=== PATIENT | female | born 1950 | race Hispanic/Latino ===

== ENCOUNTER 2018-03-01 10:07 | Emergency (ER) | payer MEDICARE ==
[~2018-03-01] VITALS: Ht 165.1 cm; Wt 59.0 kg
[2018-03-01] MEDS ORDERED: FAMOTIDINE 20 MG/2 ML VIAL IV STA (10:27)
[2018-03-01] MEDS ORDERED: METOCLOPRAMIDE HCL 10 MG/2ML VIAL IV NR (10:30)
[2018-03-01] MEDS ORDERED: SODIUM CHLORIDE 0.9% 1000ML 1,000 ML IV ONE ×2 (10:30→13:00)
[2018-03-01] MEDS ORDERED: LACTOBACILLUS ACIDOPHILUS CAPSULE PO ONE (10:30)
--- NOTE | 2018-03-01 10:52 | Diagnostic Imaging Report ---
PROCEDURE:X-RAY ABDOMEN, ACUTE SERIES COMPARISON:None. INDICATIONS:NAUSEA/VOMITING/DIARRHEA FOR 3 DAYS. BILATERAL UMBILICAL PAIN FINDINGS: There are no dilated loops of bowel or air-fluid levels to suggest obstruction. There are no masses or abnormal calcifications. There is no evidence of free air. No acute osseous abnormalities are present. Upright chest x-ray reveals no abnormality. Heart and lungs are normal. No consolidation or effusion. CONCLUSION: No acute abdominal or thoracic abnormality. Yonatan Vega D.O. Dictated by: Yonatan Vega D.O. on 03/01/2018 at 10:54 Electronically approved by: Yonatan Vega D.O. on 03/01/2018 at 10:54
[2018-03-01 11:02] LABS: BASOPHILS % 0.6 % (0.0-1.0); EOSINOPHILS # (AUTO) 0.2 (0.0-0.4); EOSINOPHILS % 4.2 % (0.0-6.0); HEMATOCRIT 41.5 % (34.2-44.1); HEMOGLOBIN 13.7 g/dL (12.0-16.0); LYMPHOCYTES # (AUTO) 1.2 (1.0-3.2); MEAN CORPUSCULAR HEMOGLOBIN 28.3 pg (28-32); MEAN CORPUSCULAR VOLUME 85.7 fL (81-99); MONOCYTES # (AUTO) 0.4 (0.2-0.8); MONOCYTES % 11.4 % (4.4-11.3); NEUTROPHILS # (AUTO) 1.8 (2.1-6.9); NEUTROPHILS % 49.5 % (38.7-80.0); PLATELET COUNT 222 x10e3/uL (140-360); RED BLOOD COUNT 4.84 x10e6/uL (3.6-5.1)
[2018-03-01 11:19] LABS: ALANINE AMINOTRANSFERASE 101 IU/L (0-55); ALBUMIN 3.3 g/dL (3.5-5.0); ALBUMIN/GLOBULIN RATIO 0.8 (0.8-2.0); ALKALINE PHOSPHATASE 49 IU/L (40-150); ANION GAP 10.8 mmol/L (8-16); BLOOD UREA NITROGEN 8 mg/dL (7-26); BUN/CREATININE RATIO 11 (6-25); CALCIUM 8.7 mg/dL (8.4-10.2); CARBON DIOXIDE 23 mmol/L (22-29); CHLORIDE 109 mmol/L (98-107); CREATININE, SERUM 0.75 mg/dL (0.57-1.11); EST GLOMERULAR FILTRATION RATE > 60 ML/MIN (60-); GLUCOSE 97 mg/dL (74-118); LIPASE 67 U/L (8-78); POTASSIUM 3.8 mmol/L (3.5-5.1); SODIUM 139 mmol/L (136-145)
[2018-03-01] MEDS ORDERED: DIPHENOXYLATE/ATROPINE TAB PO NR (12:15)
[2018-03-01 14:14] VITALS: BP 128/63
== END 2018-03-01 14:05 | disposition home or self-care (01) ==
LOC: ER 10:07
DX: A08.4 Viral intestinal infection, unspecified (principal); E86.0 Dehydration
CPT/HCPCS: 36415; 74022; 80053; 83690; 85025; 99284; J2765; J7030

== ENCOUNTER 2018-03-28 13:01 | Emergency (ER) | payer MEDICARE ==
[~2018-03-28] VITALS: Ht 165.1 cm; Wt 59.0 kg
--- OUTSIDE RECORDS SUMMARY | 2018-03-28 13:03 | XMS REPORT | Continuity of Care Document ---
Author Author [facility] Organization [facility] Address [address] [place] [address] Phone Unavailable Care Team Providers Care Bottle Blower Name Role Phone NONSTAFF PCP Unavailable Insurance Providers Guarantor Stephanie Lucas Address [address] [place] [address] Email [email or web address] [email or web address] A[employer] Policy Number [id number] Subscriber's Name LancePatrickStephanie Relationship 18 Self / Same As Patient Advance Directives Directive Response Recorded Date/Time Does the patient have an advance directive? No 03/01/18 11:54am If yes, is advance directive on file with [facility]? No 03/01/18 11:54am If not on file with [facility] will patient provide a copy? No 03/01/18 11:54am Do you have a Directive to Physician? 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 No 03/01/18 11:54am Do you have an out of hospital Do Not Resuscitate Order? No 03/01/18 11:54am Do you have any special needs we should be aware of? No 03/01/18 11:54am Do you have a support person here with you today? Yes 03/01/18 11:54am Did patient receive Notice of Privacy Practices? Yes 03/01/18 11:54am Did patient receive patient rights and responsibilities? Yes 03/01/18 11:54am Problems No problem information available. Medications No known medications. Social History No social history information available. Hospital Discharge Instructions No hospital discharge instruction information available. Plan of Care Discharge Date 03/01/18 2:05pm Disposition HOME, SELF-CARE Condition at Discharge Stable Instructions/Education Provided Diarrhea - Adult Vomiting - Adult Forms Provided Work/School Excuse Prescriptions See Medication Section Referrals Shannan Asif Functional Status No functional status information available. Allergies, Adverse Reactions, Alerts Allergen Type Severity Reaction Status Last Updated Penicillin Allergy Unknown Active 03/01/18 Immunizations No immunization information available. Vital Signs Acute Vital Signs Vital Response Date/Time Pulse Pulse Rate (adult) 63 bpm (60 - 90) 03/01/2018 2:14pm Respiratory Rate 16 bpm (12 - 24) 03/01/2018 2:14pm Blood Pressure 128/63 mm Hg 03/01/2018 2:14pm Height 5 ft 5 in 03/01/2018 10:19am Weight 130 lb 03/01/2018 10:19am Body Mass Index 21.6 kg/m^2 03/01/2018 10:19am Results Laboratory Results Test Name Result Units Flags Reference Collection Date/Time Result Date/ Time Comments White Blood Count 3.59 x10e3/uL L 4.8-10.8 03/01/2018 10:50am 2017 11:03am Red Blood Count 4.84 x10e6/uL 3.6-5.1 03/01/2018 10:50am 03/01/2018 11: 03am Hemoglobin 13.7 g/dL 12.0-16.0 03/01/2018 10:50am 03/01/2018 11:03am Hematocrit 41.5 % 34.2-44.1 03/01/2018 10:50am 03/01/2018 11:03am Mean Corpuscular Volume 85.7 fL 81-99 03/01/2018 10:50am 03/01/2018 11: 03am Mean Corpuscular Hemoglobin 28.3 pg 28-32 03/01/2018 10:50am 2017 11:03am Mean Corpuscular Hemoglobin Concent 33.0 g/dL 31-35 03/01/2018 10:50am 03/01/2018 11:03am Red Cell Distribution Width 13.0 % 11.7-14.4 03/01/2018 10:50am 2017 11:03am Platelet Count 222 x10e3/uL 140-360 03/01/2018 10:50am 03/01/2018 11: 03am Neutrophils (%) (Auto) 49.5 % 38.7-80.0 03/01/2018 10:5003/01/2018 11:03am Lymphocytes (%) (Auto) 34.0 % 18.0-39.1 03/01/2018 10:5003/01/2018 11:03am Monocytes (%) (Auto) 11.4 % H 4.4-11.3 03/01/2018 10:5003/01/2018 11 :03am Eosinophils (%) (Auto) 4.2 % 0.0-6.0 03/01/2018 10:5003/01/2018 11: 03am Basophils (%) (Auto) 0.6 % 0.0-1.0 03/01/2018 10:5003/01/2018 11: 03am IM GRANULOCYTES % 0.3 % 0.0-1.0 03/01/2018 10:5003/01/2018 11:03am Neutrophils # (Auto) 1.8 L 2.1-6.9 03/01/2018 10:5003/01/2018 11: 03am Lymphocytes # (Auto) 1.2 1.0-3.2 03/01/2018 10:5003/01/2018 11: 03am Monocytes # (Auto) 0.4 0.2-0.8 03/01/2018 10:5003/01/2018 11:03am Eosinophils # (Auto) 0.2 0.0-0.4 03/01/2018 10:5003/01/2018 11: 03am Basophils # (Auto) 0.0 0.0-0.1 03/01/2018 10:5003/01/2018 11:03am Absolute Immature Granulocyte (auto 0.01 x10e3/uL 0-0.1 03/01/2018 10: 5003/01/2018 11:03am Sodium Level 139 mmol/L 136-145 03/01/2018 10:5003/01/2018 11:19am Potassium Level 3.8 mmol/L 3.5-5.1 03/01/2018 10:5003/01/2018 11: 19am Chloride Level 109 mmol/L H 98-107 03/01/2018 10:50am 03/01/2018 11: 19am Carbon Dioxide Level 23 mmol/L 22-29 03/01/2018 10:50am 03/01/2018 11: 19am Anion Gap 10.8 mmol/L 8-16 03/01/2018 10:50am 03/01/2018 11:19am Blood Urea Nitrogen 8 mg/dL 7-26 03/01/2018 10:50am 03/01/2018 11:19am Creatinine 0.75 mg/dL 0.57-1.11 03/01/2018 10:50am 03/01/2018 11:19am BUN/Creatinine Ratio 11 6-25 03/01/2018 10:50am 03/01/2018 11:19am Estimat Glomerular Filtration Rate > 60 ML/MIN 60- 03/01/2018 10:50am 03/01/2018 11:19am Ranges were taken from the National Kidney Disease Education Program and the National Kid[employer] literature. Reference ranges: 60 or greater: Normal 16-59 (for 3 consecutive months): Chronic kidney disease 15 or less: Kidney failure Glucose Level 97 mg/dL 74-118 03/01/2018 10:50am 03/01/2018 11:19am Calcium Level 8.7 mg/dL 8.4-10.2 03/01/2018 10:50am 03/01/2018 11:19am Total Bilirubin 0.5 mg/dL 0.2-1.2 03/01/2018 10:50am 03/01/2018 11: 19am Aspartate Amino Transf (AST/SGOT) 100 IU/L H 5-34 03/01/2018 10:50am 07/2018 11:19am Alanine Aminotransferase (ALT/SGPT) 101 IU/L H 0-55 03/01/2018 10:50am 03/01/2018 11:19am Total Protein 7.5 g/dL 6.5-8.1 03/01/2018 10:5003/01/2018 11:19am Albumin 3.3 g/dL L 3.5-5.0 03/01/2018 10:50am 03/01/2018 11:19am Globulin 4.2 g/dL H 2.3-3.5 03/01/2018 10:50am 03/01/2018 11:19am Albumin/Globulin Ratio 0.8 0.8-2.0 03/01/2018 10:50am 03/01/2018 11: 19am Alkaline Phosphatase 49 IU/L 40-150 03/01/2018 10:50am 03/01/2018 11: 19am Lipase 67 U/L 8-78 03/01/2018 10:50am 03/01/2018 11:19am Procedures No procedure information available. Encounters Encounter Location Arrival/Admit Date Discharge/Depart Date Attending Provider Departed Emergency Room [facility] 03/01/18 10:07am 03/01 2:05pm LAI GOODSON MD
--- OUTSIDE RECORDS SUMMARY | 2018-03-28 13:03 | XMS REPORT ---
Author Author [facility] Address Unknown Phone Unavailable Care Team Providers Care Associate Engineer Name Role Phone LAI GOODSON Unavailable Unavailable Problems This patient has no known problems. Allergies, Adverse Reactions, Alerts This patient has no known allergies or adverse reactions. Medications This patient has no known medications. Results Test Description Test Time Test Comments Text Results Atomic Results Result Comments ABDOMEN ACUTE SERIES W/PA CXR [place] [address] Patient Name: MELODY HERNDON MR #: [id number] : 1950 Age/Sex: 67/F Req #: [id number] Adm Physician: Ordered by: LAI GOODSON MD Report #: [id number] Location: ER Room/Bed: Procedure: [id number] DX/ABDOMEN ACUTE SERIES W/PA CXR Exam Date: 03/01/18 Exam Time: 1035 REPORT STATUS: Signed PROCEDURE : X-RAY ABDOMEN, ACUTE SERIES COMPARISON: None. INDICATIONS: NAUSEA/VOMITING/DIARRHEA FOR 3 DAYS. BILATERAL UMBILICAL PAIN FINDINGS : There are no dilated loops of bowel or air-fluid levels to suggest obstruction. There are no masses or abnormal calcifications. There is no evidence of free air. No acute osseous abnormalities are present. Upright chest x-ray reveals no abnormality. Heart and lungs are normal. No consolidation or effusion. CONCLUSION: No acute abdominal or thoracic abnormality. Stefanie Gonzalez D.O. Dictated by: Steafnie Gonzalez D.O. on 03/01/2018 at 10:54 Electronically approved by: Stefanie Gonzalez D.O. on 03/01/2018 at 10:54 Dictated By: STEFANIE GONZALEZ DO 1054 Transcribed By: ALEXY on 03/01/18 1054 COPY TO: LAI GOODSON MD
[2018-03-28] MEDS ORDERED: IPRATROPIUM BROMIDE 0.02% 2.5 ML NEB NEB STA (13:29)
[2018-03-28] MEDS ORDERED: ALBUTEROL SULF 0.083% NEB SOLN 3 ML NEB NEB STA (13:29)
[2018-03-28] MEDS ORDERED: BENZONATATE 100 MG CAP PO PRN (13:30)
[2018-03-28] MEDS ORDERED: IBUPROFEN 600 MG TAB PO STA (13:31)
[2018-03-28 13:54] LABS: BILIRUBIN,URINE NEGATIVE (NEGATIVE); CLARITY,URINE CLEAR (CLEAR); COLOR,URINE YELLOW (YELLOW); KETONES,URINE NEGATIVE (NEGATIVE); LEUKOCYTE ESTERASE ,URINE NEGATIVE (NEGATIVE); NITRITE,URINE NEGATIVE (NEGATIVE); PROTEIN,URINE DIPSTICK NEGATIVE (NEGATIVE); URINE UROBILINOGEN 0.2 mg/dL (0.2 - 1)
[2018-03-28 14:07] LABS: EPITHELIAL CELLS,URINE FEW /LPF; RBC,URINE 0-5 /HPF (0-5)
--- NOTE | 2018-03-28 14:07 | Diagnostic Imaging Report ---
PROCEDURE: Frontal and lateral views of the chest. COMPARISON: 02/20/18 INDICATIONS: HEAD AND THROAT PAIN FINDINGS: Lines/tubes: None. Lungs: The lungs are well inflated and clear. There is no evidence of pneumonia or pulmonary edema. Pleura: There is no pleural effusion or pneumothorax. Heart and mediastinum: The heart and the mediastinum are normal. Bones: No acute bony abnormality. IMPRESSION: 1. No acute cardiopulmonary disease. Dictated by: Stan John M.D. on 03/28/2018 at 14:09 Electronically approved by: Stan John M.D. on 03/28/2018 at 14:09
[2018-03-28 15:17] LABS: BASOPHILS % 0.5 % (0.0-1.0); EOSINOPHILS # (AUTO) 0.2 (0.0-0.4); EOSINOPHILS % 2.3 % (0.0-6.0); HEMATOCRIT 42.4 % (34.2-44.1); HEMOGLOBIN 14.1 g/dL (12.0-16.0); LYMPHOCYTES % 13.1 % (18.0-39.1); MEAN CORPUSCULAR HEMOGLOBIN 28.7 pg (28-32); MEAN CORPUSCULAR HGB CONC 33.3 g/dL (31-35); MEAN CORPUSCULAR VOLUME 86.2 fL (81-99); MONOCYTES # (AUTO) 0.5 (0.2-0.8); MONOCYTES % 6.1 % (4.4-11.3); NEUTROPHILS % 77.9 % (38.7-80.0); PLATELET COUNT 218 x10e3/uL (140-360); RED BLOOD COUNT 4.92 x10e6/uL (3.6-5.1); RED CELL DISTRIBUTION WIDTH 13.4 % (11.7-14.4)
[2018-03-28 15:32] LABS: ALANINE AMINOTRANSFERASE 40 IU/L (0-55); ALBUMIN 4.3 g/dL (3.5-5.0); ALBUMIN/GLOBULIN RATIO 1.2 (0.8-2.0); ALKALINE PHOSPHATASE 55 IU/L (40-150); ANION GAP 11.2 mmol/L (8-16); BLOOD UREA NITROGEN 15 mg/dL (7-26); BUN/CREATININE RATIO 20 (6-25); CALCIUM 9.9 mg/dL (8.4-10.2); CARBON DIOXIDE 28 mmol/L (22-29); CHLORIDE 109 mmol/L (98-107); CREATINE KINASE 102 IU/L (29-168); CREATININE, SERUM 0.76 mg/dL (0.57-1.11); EST GLOMERULAR FILTRATION RATE > 60 ML/MIN (60-); GLUCOSE 101 mg/dL (74-118); POTASSIUM 4.2 mmol/L (3.5-5.1); SODIUM 144 mmol/L (136-145)
== END 2018-03-28 17:45 | disposition home or self-care (01) ==
LOC: ER 13:01
DX: R50.9 Fever, unspecified (principal); R05 Cough; J40 Bronchitis, not specified as acute or chronic
CPT/HCPCS: 36415; 71046; 80053; 81001; 82550; 82553; 83518; 84484; 85025; 87070; 87086; 87400; 99284

== ENCOUNTER → 2021-09-29 | Outpatient (CLI) | payer MEDICARE | LOC: MAMMO 09:22 | PROVIDERS: ATTEND Internal Medicine | DX: Z12.31 Encounter for screening mammogram for malignant neoplasm of breast (principal); E78.2 Mixed hyperlipidemia | CPT/HCPCS: 77067 ==